=== PATIENT | female | born 1965 | race Asian ===

== ENCOUNTER 2021-06-15 08:00 | Outpatient (CLI) | payer OTHER | END 2021-06-15 23:59 | LOC: LAB.N 08:00 | PROVIDERS: ATTEND Physician Assistant Medical | DX: U07.1 COVID-19 (principal) ==

== ENCOUNTER 2021-06-16 09:09 | Emergency (ER) | payer OTHER ==
--- NOTE | 2021-06-16 11:39 | ED Physician Documentation ---
History of Present Illness - Stated complaint Stated Complaint: HIGH BLOOD PRESSURE - Chief complaint Chief Complaint: General - Additonal information Additional information: 5-year-old female presents the emergency department for evaluation of elevated blood pressures. She reports that she has a longstanding history of hypertension and takes losartan and hydrochlorothiazide. For no particular reason she began checking her blood pressures about 3 days ago. She noted that her blood pressures were between 150 and 190 systolic. This caused her quite a bit of panic and worry. After that she noticed a catching her breath and a sharp pain in her chest that radiated to the left arm. She denies cough or fever but does endorse sinus congestion for much of the last week. She discussed these concerns with her primary care provider who advised her to come to the ER for a second evaluation. She denies any headache or diplopia. No abdominal pain nausea or vomiting. No unilateral leg swelling. She is not vaccinated for COVID-19. She denies a history of tobacco or alcohol use. No family history of early coronary artery disease. Review of Systems Ears: reports: Reviewed and negative Nose: reports: Foreign Body Throat: reports: Reviewed and negative Cardiac: reports: Chest pain / pressure. denies: Pedal edema, Calf pain Respiratory: reports: Dyspnea. denies: Cough GI: reports: Reviewed and negative : reports: Reviewed and negative Skin: reports: Reviewed and negative Musculoskeletal: reports: Reviewed and negative PD PAST MEDICAL HISTORY - Past Medical History Cardiovascular: Hypertension - Present Medications Home Medications: Ambulatory Orders Medication Instructions Recorded Confirmed Amox/Clav 875/125 [Augmentin 1 tablet PO Q12H 10 Days #20 tablet 06/16/21 875/125 Tab] Azithromycin [Zithromax] 0 mg PO DAILY #6 tablet 06/16/21 - Allergies Allergies/Adverse Reactions: Allergies Allergy/AdvReac Type Severity Reaction Status Date / Time No Known Drug Allergies Allergy Verified 06/16/21 09:34 - Social History Does the pt smoke?: No PD ED PE NORMAL - General General: Alert and oriented X 3, No acute distress - HEENT HEENT: PERRL - Neck Neck: Supple, no meningeal sign - Cardiac Cardiac: RRR, No murmur - Respiratory Respiratory: Clear bilaterally - Abdomen Abdomen: Normal bowel sounds, Soft, Non tender, Non distended - Back Back: No CVA TTP - Derm Derm: Normal color, Warm and dry, No rash - Neuro Neuro: Alert and oriented X 3, manager art 2-12 intact Eye Opening: Spontaneous Motor: Obeys Commands Verbal: Oriented GCS Score: 15 Results - Vitals Vitals: Vital Signs - 24 hr 06/16/21 09:30 Temperature 36.4 C L Heart Rate 90 Respiratory 14 Rate Blood Pressure 154/78 H O2 Saturation 99 Oxygen O2 Source Room air - EKG (time done) 1138 Rate: Rate (enter#) (87) Rhythm: NSR [place]: Normal Intervals: Normal NV. No: Prolonged QT QRS: LVH Ischemia: Q waves (inferior) Computer interpretation: Agree with computer - Labs Labs: Laboratory Tests 06/16/21 06/16/21 06/16/21 11:44 11:44 11:44 WBC 6.7 RBC 4.94 Hgb 14.5 Hct 43.1 MCV 87.2 MCH 29.4 MCHC 33.6 RDW 11.9 L Plt Count 354 MPV 9.3 Neut # (Auto) Not Reportable Lymph # (Auto) Not Reportable [place] # (Auto) Not Reportable Eos # (Auto) Not Reportable Baso # (Auto) Not Reportable Absolute Nucleated RBC Not Reportable Total Counted 100 Band Neuts % (Manual) 0 Abnorm Lymph % (Manual) 0 Other Cells % 2 Nucleated RBC % Not Reportable Neutrophils # (Manual) 5.5 Lymphocytes # (Manual) 0.6 L Monocytes # (Manual) 0.5 Eosinophils # (Manual) 0.0 Basophils # (Manual) 0.0 Differential Comment MANUAL DIFFERENTIAL Platelet Estimate NORMAL (130-450,000) Platelet Morphology NORMAL APPEARANCE RBC Morph Micro Appear NORMAL APPEARANCE Sodium 137 Potassium 2.9 L Chloride 91 L Carbon Dioxide 30 Anion Gap 16.0 H BUN 9 Creatinine 0.7 Estimated GFR (MDRD) 87 L Glucose 130 H Calcium 9.4 Total Bilirubin 1.6 H AST 53 H ALT 54 Alkaline Phosphatase 90 Troponin I High Sens 5.6 Total Protein 8.1 Albumin 4.1 Globulin 4.0 Albumin/Globulin Ratio 1.0 Lipase 27 - Rads (name of study) CXR Radiology: Final report received (lateral patchy lung opacities with basilar predominance suspicious for multilobar pneumonia) PD MEDICAL DECISION MAKING - ED course Complexity details: reviewed results, considered differential, d/w patient, d/w family ED course: 55-year-old female presents emergency department for evaluation of an elevated blood pressure. She is also endorsing a sharp catch in her breath with some sinus congestion for the last week. She is not vaccinated for COVID-19. She does have an outpatient COVID-19 test pending that was obtained yesterday. Chest x-ray here does show a bilateral multilobar pneumonia. Patient has no hypoxia on room air and has essentially clear cardiopulmonary auscultation without tachypnea rails or wheeze. If patient is positive for COVID-19 she would be a candidate for Mab therapy. She is advised that she can contact the ER to return for Mab if positive tomorrow. Patient will be started on Augmentin and a Zithromax for community-acquired pneumonia on chest x-ray. She is advised to have a follow-up with her PCP in 2 to 3 weeks time for repeat chest x-ray. Appropriate quarantine was discussed if Covid positive. EKG is nonischemic. High-sensitivity troponin is negative. Do note a moderate hypokalemia. Encourage potassium rich foods. Otherwise patient is clinically stable for discharge home emergent return precautions were discussed. Departure - Departure Disposition: 01 Home, Self Care Clinical Impression: Pneumonia Qualifiers: Pneumonia type: due to unspecified organism Laterality: bilateral Lung location: unspecified part of lung Qualified Code(s): J18.9 - Pneumonia, unspecified organism High blood pressure Qualifiers: Hypertension type: primary hypertension Qualified Code(s): I10 - Essential (primary) hypertension Condition: Stable Record reviewed to determine appropriate education?: Yes Instructions: ED Pneumonia Adult Follow-Up: VIC OCHOA MD [Primary Care Provider] - Prescriptions: Amox/Clav 875/125 [Augmentin 875/125 Tab] 1 tablet PO Q12H 10 Days #20 tablet Azithromycin [Zithromax] 0 mg PO DAILY #6 tablet Comments: Cheryl you were seen in the ER today for concerns of elevated blood pressure. You do have elevated blood pressure your EKG looks good and you are not having a heart attack. Longer-term management of your blood pressure must be discussed with your primary care doctor. Your chest x-ray however does show multilobar pneumonia. I am starting you on 2 antibiotics. You will take the Augmentin twice daily for 10 days. You will take the Zithromax for the next 5 days only. You should have a repeat chest x-ray in about 3 weeks time to ensure that the pneumonia is resolving. If it is not your primary care provider should consider a CAT scan of your chest. You do have an outpatient COVID-19 test pending. You must remain in quarantine until these test results are known. If you are positive for COVID-19 you can call the emergency department to return tomorrow or the next day to have consideration of MAB therapy. Rest, cannot breathe well or develop chest pain return immediately to the ER for a second evaluation.
[2021-06-16 11:49] LABS: BASOPHILS % (AUTO) 0.3 %
[2021-06-16 11:52] LABS: HCT - HEMATOCRIT 43.1 % (37.0-47.0); HGB - HEMOGLOBIN 14.5 g/dL (12.0-16.0); LYMPHOCYTES % (AUTO) 18.7 %; MEAN CORPUSCULAR HEMOGLOBIN 29.4 pg (27.0-31.0); MEAN CORPUSCULAR HGB CONC 33.6 g/dL (32.0-36.0); MEAN CORPUSCULAR VOLUME 87.2 fL (81.0-99.0); MEAN PLATELET VOLUME 9.3 fL (7.9-10.8); MONOCYTES % (AUTO) 7.2 %; NEUTROPHILS % (AUTO) 72.5 %; PLT - PLATELET COUNT 354 10^3/uL (130-450); RED BLOOD COUNT 4.94 10^6/uL (4.20-5.40); RED CELL DISTRIBUTION WIDTH 11.9 % (12.0-15.0); WHITE BLOOD COUNT 6.7 x10^3/uL (4.8-10.8)
[2021-06-16 11:53] LABS: ABNORMAL LYMPHS % (MANUAL) 0 %; BAND NEUTROPHILS % (MANUAL) 0 %
--- NOTE | 2021-06-16 11:59 | XRAY Report ---
PROCEDURE: Chest 1 View X-Ray INDICATIONS: chest pain TECHNIQUE: One view of the chest was acquired. COMPARISON: None FINDINGS: Surgical changes and devices: None. Lungs and pleura: No pleural effusions or pneumothorax. Patchy opacification of the lungs bilaterall y concerning for multilobar pneumonia. Mediastinum: Mediastinal contours appear normal. Heart size is normal. Bones and chest wall: No suspicious bony lesions. Overlying soft tissues appear unremarkable. IMPRESSION: Lateral patchy lung opacities with basilar predominance suspicious for multilobar pneumonia. Reviewed by: Jaylene Hurt MD, PhD on 06/16/2021 11:58 AM PDT Approved by: Jaylene Hurt MD, PhD on 06/16/2021 11:58 AM PDT Station ID: [id number]
[2021-06-16 12:04] LABS: ALBUMIN 4.1 g/dL (3.2-5.5); BILIRUBIN,TOTAL 1.6 mg/dL (0.2-1.0); CALCIUM 9.4 mg/dL (8.5-10.3); CREATININE 0.7 mg/dL (0.4-1.0); POTASSIUM 2.9 mmol/L (3.5-5.0); TOTAL PROTEIN 8.1 g/dL (6.7-8.2)
[2021-06-16 12:09] LABS: LYMPHOCYTES # (MANUAL) 0.6 10^3/uL (1.5-3.5); LYMPHOCYTES % (MANUAL) 9 %; MONOCYTES # (MANUAL) 0.5 10^3/uL (0.0-1.0); NEUTROPHILS # (MANUAL) 5.5 10^3/uL (1.5-6.6)
[2021-06-16 12:10] LABS: DIFFERENTIAL COMMENT MANUAL DIFFERENTIAL; OTHER CELLS % (MANUAL) 2 %; PLATELET ESTIMATE, MANUAL NORMAL (130-450,000) (NORMAL); PLATELET MORPHOLOGY NORMAL APPEARANCE (NORMAL); RBC MORPHOLOGY (MULTIPLE) NORMAL APPEARANCE (NORMAL)
[2021-06-16 12:55] VITALS: BP 155/69
== END 2021-06-16 12:54 | disposition home or self-care (01) ==
LOC: ED 09:09
DX: J18.9 Pneumonia, unspecified organism (principal); I10 Essential (primary) hypertension
CPT/HCPCS: 36415; 80053; 83690; 84484; 85025; 93005; 99284

== ENCOUNTER 2022-03-30 08:49 | Outpatient (CLI) | payer OTHER ==
--- NOTE | 2022-03-30 09:47 | SLEEP CARE CONSULTATION ---
Information from patient questionnaire entered by Marshall Carmen MA. I have reviewed and concur with the information entered by Marshall Carmen MA. This document represents the service I personally performed and the decisions made by , Carleen Grayson ARNP. History of Present Illness Service Date and Time: 03/30/2022 0849 Reason for Visit: New patient (LAST SEEN 07/17/2006, ), Previously diagnosed sleep apnea, Re-establish care Chief Complaint: reports: Unrefreshed sleep, Snoring, Observed pauses in breathing, Fatigue, Frequent awakenings at night Date of Onset: 16 years Usual bedtime: 10:30 PM Time it takes to fall asleep: less than 5 minutes Snores at night: Yes Observed to quit breathing while asleep: Yes Sleeps alone due to snoring: No Number of times waking at night: twice Reasons for waking at night: reports: Snoring, Gasping for air, Bathroom, Other (unknown reasons) Toss, Turn, or Twitch while sleeping: Yes Recalls having dreams: Yes Usually gets out of bed at: 0500, then in about an hour lays down for hour if really tired Feels refreshed in the morning: No Morning headache: No Sleepy or fatigued during the day: Yes Ever fallen asleep while driving: No Takes day naps: Yes Dreams during day naps: Yes Prior sleep studies: Yes Year and Where: 01/2006 [facility] Type of Sleep Study: Polysomnography Additional HPI information: YRN AKERS was previously diagnosed to have mild, AHI 14.3, obstructive sleep apnea-hypopnea syndrome and comes in today to re-establish care. Patient states that she used her CPAP after being diagnosed in 2005 for about 2 years. It became very hard to keep the mask on her face and she was getting a lot of water dripping into her mask. She stopped using it altogether. She returns today because her is concerned about her snoring and that she is having pauses in breathing when sleeping. - Parasomnia Symptoms Ever been unable to move upon waking from sleep: No Walks in sleep: No Talks in sleep: Yes Ever acted out dreams in sleep: Yes Ever felt weak in the knees when startled or emotional: No Bothered by creepy, crawly, restless sensations in legs: No Problems with memory or concentration: No CPAP Compliance Data Compliance data discussion: She used to use a full face mask. She did not change the cushion out regularly. Subjective Initial Mobile Sleepiness Scale score: 7 (03/2022) Past Medical History Past Medical History: reports: Hypertension, Claustrophobia, Diabetes (diet controlled), Arthritis, Anxiety, Other (sinus issues- allergies) Social History The patient's occupation is a [employer]. Patient is and lives in [place]. Have you smoked in the past 12 months: No Alcohol use: Yes Alcohol amount and frequency: 1-2 glasses weekly on average Caffeine use: Yes Caffeine amount and frequency: 1 cup tea a day Family History Family history of sleep disordered breathing: Yes (father in his sleep) Family Hx Sleep Apnea: Mother: Snoring, Father: Snoring, Sibling: Snoring Allergies and Home Medications Drug allergies reviewed: Yes (NKDA) Home medication list reviewed: Yes Allergy and home medication list: Allergies No Known Drug Allergies Allergy (Verified 06/16/21 09:34) Medications: Losartan HCTZ Buspirone Loratidine Review of Systems Weight loss over past 5 years: 8 - 10 lbs Cardiovascular: reports: high blood pressure, palpitations, irregular heart rate or pulse Gastrointestinal: reports: heartburn Urinary: reports: frequency Neurological: reports: headaches Psychiatric: reports: anxiety, claustrophobia Ear/Nose/Throat: reports: nasal congestion, sinus problems, dry mouth/throat, wisdom teeth removed. denies: tonsillectomy Endocrine: reports: increased urination Immunologic: reports: allergies to food or environment (pollen) Physical Exam Vital signs obtained and entered by: Jeremi Flores MA Blood Pressure: 148/96 (left) Cuff size: regular Heart Rate: 97 O2 Saturation: 99 Height: 4 ft 10 in Weight: 118 lb Body Mass Index: 24.6 BMI Classification: Healthy weight Heart: regular rate and rhythm Lungs: clear bilaterally Impression and Plan 1. Suspected Obstructive Sleep Apnea-Hypopnea Syndrome, as previously diagnosed and as still suggested by a history of loud and irregular snoring, observed cessation of breath while asleep, gasping or choking in sleep, frequent awakening during the night and unrefreshed sleep. She has not been on any therapy for her sleep apnea and comes in to see if she still has sleep apnea. I recommend proceeding to polysomnography to confirm the diagnosis and to assess severity. If the patient has significant sleep disordered breathing, a manual CPAP titration study will also be performed to find the optimal treatment pressure. I informed the patient of what the sleep studies involve and after some discussion, obtained agreement to proceed. The pathophysiology of obstructive sleep apnea-hypopnea syndrome was discussed with the patient and health risks of cardiovascular and cerebrovascular disease if not treated. Risks of drowsy driving discussed in detail and patient advised to avoid long distance driving and to dust puller at the first sign of drowsiness. Patient agre ed to plan. * Schedule polysomnography * Avoid long distance driving or driving when feeling sleepy. * Avoid alcohol, sedative and muscle relaxant around bedtime. * Maintain a healthy weight. * Review instructions provided by trained office staff on how to prepare for the sleep study. * Return for follow-up after sleep study completed. Counseling Topics: Weight control Visit Type: In Office Time Spent with Patient (minutes): 30 Provider Statement: I spent 100% of the Face to Face Visit with the patient with greater than 50% spent counseling the patient and coordination of care.
[2022-03-30 09:48] VITALS: BP 148/96
== END 2022-03-30 08:50 | disposition home or self-care (01) ==
LOC: SC 08:49
PROVIDERS: ATTEND Nurse Practitioner Family
DX: G47.33 Obstructive sleep apnea (adult) (pediatric) (principal); E11.9 Type 2 diabetes mellitus without complications; I10 Essential (primary) hypertension
CPT/HCPCS: 99203; 99212

== ENCOUNTER 2022-04-29 09:30 | Outpatient (CLI) | payer OTHER | END 2022-04-29 09:31 | disposition home or self-care (01) | LOC: SC 09:30 | PROVIDERS: ATTEND Nurse Practitioner Family | DX: G47.33 Obstructive sleep apnea (adult) (pediatric) (principal); R09.02 Hypoxemia | CPT/HCPCS: 95806 ==

== ENCOUNTER 2024-01-18 08:00 | Outpatient (CLI) | payer OTHER | END 2024-01-18 23:59 | disposition home or self-care (01) | LOC: LAB.R 08:00 | PROVIDERS: ATTEND Nurse Practitioner | DX: L60.3 Nail dystrophy (principal) | CPT/HCPCS: 87101 ==